=== PATIENT | female | born 1930 | race Caucasian/White ===

== ENCOUNTER 2019-03-18 05:41 | Emergency (ER) | payer OTHER ==
[~2019-03-18] VITALS: Ht 149.9 cm; Wt 79.4 kg
[2019-03-18 05:43] VITALS: Ht 149.9 cm; Wt 79.4 kg
[2019-03-18 07:01] LABS: BASOPHIL % 0.7 % (0-2); PLATELET COUNT 269 x10^3mcL (130-400); RED CELL DISTRIBUTION WIDTH 13.4 % (11.5-14.5)
[2019-03-18 07:20] LABS: ALBUMIN 3.7 g/dL (3.4-5.0); ALKALINE PHOSPHATASE 104 U/L (46-116); AST/SGOT 16 U/L (15-37); BILIRUBIN TOTAL 0.62 mg/dL (0.20-1.00); CHLORIDE SERUM 102 mmol/L (98-107); CHOLESTEROL 151 mg/dL (<200); HDL CHOLESTEROL 50 mg/dL (40-60); LIPASE 106 IU/L (73-393); TOTAL PROTEIN, SERUM 7.6 g/dL (6.4-8.2); TRIGLYCERIDES 148 mg/dL (<150)
[2019-03-18 07:23] LABS: CALCIUM 9.1 mg/dL (8.5-10.1); CARBON DIOXIDE 27.3 mmol/L (21-32); CREATININE SERUM 1.1 mg/dL (0.6-1.0); GLUCOSE SERUM 105 mg/dL (74-106); POTASSIUM SERUM 3.7 mmol/L (3.5-5.1); SODIUM SERUM 139 mmol/L (136-145)
[2019-03-18 07:31] LABS: ALT/SGPT 12 U/L (14-59)
[2019-03-18 07:41] LABS: FREE T4 0.77 ng/dL (0.76-1.46); FREE THYROXINE INDEX 1.8 ug/dL (1.4-4.5); T4(THYROXINE) 5.4 ug/dL (4.7-13.3)
[2019-03-18 07:57] LABS: T3 TOTAL 1.23 ng/mL
[2019-03-18 09:32] VITALS: BP 152/82
== END 2019-03-18 09:32 | disposition home or self-care (01) ==
LOC: ED 05:41
PROVIDERS: Specialist
DX: S01.01XA Laceration without foreign body of scalp, initial encounter (principal); I10 Essential (primary) hypertension; N39.0 Urinary tract infection, site not specified; F03.90 Unspecified dementia, unspecified severity, without behavioral disturbance, psychotic disturbance, mood disturbance, and anxiety; E78.00 Pure hypercholesterolemia, unspecified; I25.2 Old myocardial infarction; Z95.818 Presence of other cardiac implants and grafts; Z88.1 Allergy status to other antibiotic agents; W19.XXXA Unspecified fall, initial encounter; Y93.89 Activity, other specified; Y92.098 Other place in other non-institutional residence as the place of occurrence of the external cause; Y99.8 Other external cause status
CPT/HCPCS: 36415; 83880; 84439; 90715; J2001